=== PATIENT | male | born 1965 | race Hispanic/Latino ===

== ENCOUNTER 2019-01-25 22:12 | Emergency (ER) | payer OTHER ==
[~2019-01-25] VITALS: Ht 172.7 cm; Wt 78.1 kg
[2019-01-25] MEDS ORDERED: AMOXICILLIN500 MG PO (23:27)
[2019-01-25 23:49] VITALS: BP 153/89
== END 2019-01-25 23:49 | disposition home or self-care (01) | DRG 605 ==
LOC: ED 22:12
PROC: 0HQ0XZZ Repair Scalp Skin, External Approach (ICD-10-PCS; principal; 2019-01-25)
DX: S01.01XA Laceration without foreign body of scalp, initial encounter (principal); I10 Essential (primary) hypertension; Y00.XXXA Assault by blunt object, initial encounter; Y92.143 Cell of prison as the place of occurrence of the external cause